=== PATIENT | female | born 1970 | race Caucasian/White ===

== ENCOUNTER → 2017-07-04 | Outpatient (CLI) | payer OTHER | LOC: CIMAGING 11:14 | DX: Z12.31 Encounter for screening mammogram for malignant neoplasm of breast (principal); Z80.3 Family history of malignant neoplasm of breast | CPT/HCPCS: G0202 ==

== ENCOUNTER → 2017-08-11 | Outpatient (CLI) | payer OTHER | LOC: FIMAGING 11:30 | PROVIDERS: ATTEND Obstetrics & Gynecology | DX: Z31.69 Encounter for other general counseling and advice on procreation (principal) ==

== ENCOUNTER → 2018-03-26 | Outpatient (CLI) | payer OTHER | LOC: FIMAGING 13:27 | PROVIDERS: ATTEND Obstetrics & Gynecology | DX: O44.02 Complete placenta previa NOS or without hemorrhage, second trimester (principal); O26.872 Cervical shortening, second trimester; O09.812 Supervision of pregnancy resulting from assisted reproductive technology, second trimester; O09.522 Supervision of elderly multigravida, second trimester; O34.219 Maternal care for unspecified type scar from previous cesarean delivery; Z3A.19 19 weeks gestation of pregnancy ==

== ENCOUNTER → 2018-04-09 | Outpatient (CLI) | payer OTHER | LOC: FIMAGING 10:13 | PROVIDERS: ATTEND Obstetrics & Gynecology | DX: O09.522 Supervision of elderly multigravida, second trimester (principal); O09.812 Supervision of pregnancy resulting from assisted reproductive technology, second trimester; Z3A.21 21 weeks gestation of pregnancy ==

== ENCOUNTER → 2018-04-16 | Outpatient (CLI) | payer OTHER | LOC: FIMAGING 13:41 | PROVIDERS: ATTEND Obstetrics & Gynecology | DX: O26.872 Cervical shortening, second trimester (principal); O44.22 Partial placenta previa NOS or without hemorrhage, second trimester; O34.219 Maternal care for unspecified type scar from previous cesarean delivery; O09.522 Supervision of elderly multigravida, second trimester; O09.812 Supervision of pregnancy resulting from assisted reproductive technology, second trimester; Z3A.22 22 weeks gestation of pregnancy ==

== ENCOUNTER → 2018-04-21 | Outpatient (CLI) | payer OTHER | LOC: FLAB 14:38 | PROVIDERS: ATTEND Obstetrics & Gynecology | DX: O26.872 Cervical shortening, second trimester (principal); O44.22 Partial placenta previa NOS or without hemorrhage, second trimester; O09.812 Supervision of pregnancy resulting from assisted reproductive technology, second trimester; O09.522 Supervision of elderly multigravida, second trimester; O34.219 Maternal care for unspecified type scar from previous cesarean delivery; Z3A.23 23 weeks gestation of pregnancy ==

== ENCOUNTER → 2018-05-05 | Outpatient (CLI) | payer OTHER | LOC: FIMAGING 13:15 | PROVIDERS: ATTEND Obstetrics & Gynecology | DX: O09.522 Supervision of elderly multigravida, second trimester (principal); O09.812 Supervision of pregnancy resulting from assisted reproductive technology, second trimester; Z3A.25 25 weeks gestation of pregnancy ==

== ENCOUNTER → 2018-06-08 | Outpatient (CLI) | payer OTHER | LOC: FIMAGING 15:05 | PROVIDERS: ATTEND Obstetrics & Gynecology | DX: O44.43 Low lying placenta NOS or without hemorrhage, third trimester (principal); O09.813 Supervision of pregnancy resulting from assisted reproductive technology, third trimester; O09.523 Supervision of elderly multigravida, third trimester; O34.219 Maternal care for unspecified type scar from previous cesarean delivery; O26.873 Cervical shortening, third trimester; Z3A.30 30 weeks gestation of pregnancy ==

== ENCOUNTER 2018-08-05 09:34 | Observation (INO) | payer OTHER ==
[2018-08-05 10:35] LABS: PLATELET COUNT 190 10^3/uL (150-400)
== END 2018-08-05 11:30 | disposition home or self-care (01) ==
LOC: FLD 09:34
PROVIDERS: ADMIT Obstetrics & Gynecology; ATTEND Obstetrics & Gynecology
DX: O46.90 Antepartum hemorrhage, unspecified, unspecified trimester (principal)
CPT/HCPCS: 59025; G0378

== ENCOUNTER 2018-08-07 01:10 | Inpatient (IN) | payer OTHER ==
[2018-08-07] MEDS ORDERED: CITRIC ACID/SODIUM CITRATE 30 ML UDCUP PO ONE (01:21)
[2018-08-07] MEDS ORDERED: LR 500 ML IV ONE (01:21)
[2018-08-07] MEDS ORDERED: LR 1,000 ML IV SCH (01:30)
--- NOTE | 2018-08-07 01:35 | PDHPUP ---
History & Physical Update H&P update statement: This history and physical update is based on an assessment of the patient which was completed after admission or registration (within 24 hours), but prior to the surgery/procedure. H&P update: H&P reviewed & patient examined, changes noted (Pt presented with an episode of a large gush of blood + clots, will proceed with delivery now)
[2018-08-07] MEDS ORDERED: ceFAZolin 2 GM/DEXTROSE 100 ML IV ONE (01:38)
[2018-08-07 01:39] LABS: PLATELET COUNT 234 10^3/uL (150-400)
[2018-08-07] MEDS ORDERED: morphINE PF 5 MG/10 ML INJ ONE (01:43)
[2018-08-07] MEDS ORDERED: fentaNYL 100 MCG/2 ML INJ ONE (01:43)
[2018-08-07] MEDS ORDERED: PHENYLEPHRINE HCL 100 MCG/ML SYR ONE (01:43)
[2018-08-07] MEDS ORDERED: OXYTOCIN 100 UNITS/10 ML VIAL ONE (01:48)
[2018-08-07] MEDS ORDERED: BUPIVACAINE/DEXTROSE 7.5MG/ML 2 ML SPINAL AMP SP ONE (01:48)
--- NOTE | 2018-08-07 01:54 | PREANESOB ---
Obstetric Pre-Anesthesia Info - General Info Proposed Procedure: C/S : 2 Para: 1 MAYCOL: 08/16/18 Gestational Age: 38 week(s) and 5 day(s) - Info Status: Full Term, Issa Monitors: External FHR Pattern: Reassuring - Labor Status PIH: No Section History: Repeat Indications for Current Section: Other (Specify) (Painless vaginal bleeding) Labor Epidural: No Anesthesia Allergies/Adverse Reactions: Allergy/AdvReac Type Severity Reaction Status Date / Time No Known Allergies Allergy Unverified 10/24/15 12:04 Home Medications: Medication Instructions Recorded Calcium 500 + Vit D 200 Tablet 4 tab PO DAILY 10/25/15 1 tab PO DAILY 10/25/15 Hydrocodone/APAP 5/325 [[place] 1 - 2 tab PO Q4 PRN #40 tab 10/28/15 5/325 (*)] Ibuprofen [Motrin (*)] 600 mg PO Q6 PRN #60 tab 10/28/15 Visit Medications: Generic Name Dose Route Start Last Admin Trade Name Freq PRN Reason Stop Dose Admin Lactated Ringer's 1,000 mls @ 125 mls/hr 08/07/18 01:30 Lr IV 08/08/18 01:29 CONT JUANITA Cefazolin Sodium/Dextrose 100 mls @ 200 mls/hr 08/07/18 01:38 Ancef 2 Gm IV 08/07/18 02:07 ONCALL ONE Protocol Discontinued Medications Generic Name Dose Route Start Last Admin Trade Name Freq PRN Reason Stop Dose Admin Bupivacaine HCl/Dextrose Confirm 08/07/18 01:48 Marcaine Spinal Administered 08/07/18 01:49 Dose 2 ml SP .STK-MED ONE Citric Acid/Sodium Citrate 30 ml 08/07/18 01:21 08/07/18 01:42 Bicitra PO 08/07/18 01:22 30 ml ONCALL ONE Administration Fentanyl Confirm 08/07/18 01:43 Sublimaze Administered 08/07/18 01:44 Dose 100 mcg .ROUTE .STK-MED ONE Lactated Ringer's 500 mls @ 0 mls/hr 08/07/18 01:21 Lr IV 08/07/18 01:22 ONCE ONE As Directed Morphine Sulfate Confirm 08/07/18 01:43 Morphine Pf 5 Mg/10 Ml Administered 09/14/18 01:44 Dose 5 mg .ROUTE .STK-MED ONE Oxytocin Confirm 08/07/18 01:48 Pitocin Administered 08/07/18 01:49 Dose 100 units .ROUTE .STK-MED ONE Phenylephrine HCl Confirm 08/07/18 01:43 Neosynephrine Administered 08/07/18 01:44 Dose 1,000 mcg .ROUTE .STK-MED ONE - Anesthesia History Anesthesia & Operative History: No Prior Problems (Prior C/S 2.5 yrs ago under epidural anesthesia) - Vital Signs Height/Weight (Nursing): Height 162.56 cm Weight 75.296 kg - Focused Exam Neck exam: FROM Mallampati Score: Class 2 Mouth exam: normal dental/mouth exam Pulmonary: no respiratory distress, no rales or rhonchi, clear to auscultation Cardiovascular: regular rate and rhythym, no murmur, rub, or gallop Labs: 08/07/18 01:20 - Plan Consent Signed and on Chart: Yes
[2018-08-07] MEDS ORDERED: HYDROCODONE/APAP 5/325 TAB PO PRN (02:31)
[2018-08-07] MEDS ORDERED: MEPERIDINE 25 MG/0.5 ML AMP IVP PRN (02:31)
[2018-08-07] MEDS ORDERED: PHENYLEPHRINE HCL 100 MCG/ML SYR IVP PRN (02:31)
[2018-08-07] MEDS ORDERED: fentaNYL 100 MCG/2 ML INJ IVP PRN (02:31)
[2018-08-07] MEDS ORDERED: ONDANSETRON 4 MG/2 ML VIAL IVP PRN (02:31)
[2018-08-07] MEDS ORDERED: NALOXONE HCL 0.4 MG/ML INJ IVP PRN (02:31)
[2018-08-07] MEDS ORDERED: PHENYLEPHRINE 10 MG/ML SDV ONE (02:58)
[2018-08-07] MEDS ORDERED: SILVER NITRATE APPLICATOR 1 APPL TP ONE (03:17)
--- NOTE | 2018-08-07 03:31 | OBDEL ---
Info Type: Repeat Presentation at Delivery: Vertex L&D Analgesia/Anesthesia Type: Spinal GBS+: No Intrapartum Medications: Discontinued Medications Generic Name Dose Route Start Last Admin Trade Name Deborah PRN Reason Stop Dose Admin Citric Acid/Sodium Citrate 30 ml 08/07/18 01:21 08/07/18 01:42 Bicitra PO 08/07/18 01:22 30 ml ONCALL ONE Administration Cefazolin Sodium/Dextrose 100 mls @ 200 mls/hr 08/07/18 01:38 08/07/18 01:53 Ancef 2 Gm IV 08/07/18 02:07 100 mls ONCALL ONE Administration Protocol - Infant Care Provider Virtual Office Assistant/[facility]: Anum Rodriguez Indications for Delivery: Elective (repeat, presented with vaginal bleeding @ 38 weeks) Vaginal Delivery - Labor and Delivery Cord Gases: Cord Gases Cord Blood PCO2 55.4 mmHg (37-60) 08/07/18 02:12 Cord Base Excess -5.0 mEq/L (-13.6--3.2) 08/07/18 02:12 Cord ABG pH 7.24 (7.10-7.37) 08/07/18 02:12 Cord VBG pH 7.31 (7.20-7.42) 08/07/18 02:12 Operative Report - Delivery Pre-op Diagnoses: IUP @ 38 4/7 weeks, h/o c section desires repeat, presented with heavy vaginal bleeding Post-op Diagnoses: same History of Prior Section: Yes Number of Prior Sections: 1 Nulliparous Prior to Delivery: No Indications for Prior Section: Arrest of Dilation Indications for Current Section: Elective/Repeat, Other (Specify) ( Painless vaginal bleeding) Procedure: Unscheduled Surgeon: Yolie Aguilar Third Officer: Altagracia Sierra Anesthesiologist: Gustavo Andres Complications: Other (Specify) (presented with heavy vaginal bleeding) Findings: no obvious source of bleeding Cord Gases: Cord Gases Cord Blood PCO2 55.4 mmHg (37-60) 08/07/18 02:12 Cord Base Excess -5.0 mEq/L (-13.6--3.2) 08/07/18 02:12 Cord ABG pH 7.24 (7.10-7.37) 08/07/18 02:12 Cord VBG pH 7.31 (7.20-7.42) 08/07/18 02:12 [place] Data MAYCOL: 08/16/18 Gestational Age: 38 week(s) and 5 day(s) Issa Delivery Date: 08/07/18 Delivery Time: 02:35 Sex of Infant: Male [place] Weight (gm): 3124 g Score (1 Min): 8 Score (5 Min): 8 ICD10 Worksheet Patient Problems: Problems Problem Status Onset Delivery by section of full-term infant Acute Vaginal bleeding Acute Oligohydramnios antepartum Acute - ICD10 Problem Qualifiers (1) Delivery by section of full-term infant (2) Vaginal bleeding
--- NOTE | 2018-08-07 03:34 | POSTANESTH ---
Post Anesthetic Evaluation Cardiovascular Status: Tx Over/Under Hydration (A little hypotensive (92/59); giving IV fluid. It will improve as spinal anesthetic recedes.) Respiratory Status: Normal, Stable, Similar to Pre-op Cond. Level of Consciousness/Mental Status: Can Participate in Eval, Alert and Oriented Pain Control: Adequate, Prn Tx Ordered Nausea/Vomiting Control: Adequate, Prn Tx Ordered Complications Possibly Related to Anesthesia: None Noted
[2018-08-07] MEDS ORDERED: SIMETHICONE 80 MG TAB CHEW PO PRN (03:37)
[2018-08-07] MEDS ORDERED: DOCUSATE SODIUM 100 MG CAP PO PRN (03:37)
[2018-08-07] MEDS ORDERED: PROMETHAZINE HCL 25 MG/ML INJ IVP PRN (03:37)
[2018-08-07] MEDS ORDERED: OXYTOCIN/RINGERS LACTATE 20 UNIT/1,000 ML BAG IV ONE (04:56)
[2018-08-07] MEDS ORDERED: MISOPROSTOL 200 MCG TAB ONE (04:58)
[2018-08-07] MEDS ORDERED: OXYTOCIN/RINGERS LACTATE 1,000 ML IV SCH (05:15)
[2018-08-07] MEDS ORDERED: MISOPROSTOL 200 MCG TAB PR ONE (05:15)
[2018-08-07] MEDS: KETOROLAC 30 MG/1 ML SDV IVP SCH ×4 (05:54→23:29)
--- NOTE | 2018-08-07 06:11 | SOAPPROG ---
SOAP Progress Note Assessment/Plan: Pt having light flow/trickle of bleeding. RN called for evaluation. sterile vaginal exam performed and clots noted at cervical os, which were manually removed. uterus firm and bleeding appropriate. will continue to monitor. Dr Aguilar aware/agrees with plan of care Objective: Vital Signs Temp Pulse Resp BP Pulse Ox 36.5 C 15 113/81 H 100 08/07/18 03:23 08/07/18 04:38 08/07/18 04:38 08/07/18 04:38 Laboratory Results 08/07/18 01:20 08/06/18 08/07/18 08/08/18 05:59 05:59 05:59 Output Total 250 Balance -250 ICD10 Worksheet Patient Problems: Problems Problem Status Onset Delivery by section of full-term infant Acute Vaginal bleeding Acute Oligohydramnios antepartum Acute
--- NOTE | 2018-08-07 07:37 | GOP ---
DATE OF OPERATION: 08/07/2018 SURGEON: Yolie Aguilar MD FOIL STAMP OPERATOR: Altagracia Sierra CNM. ANESTHESIA: Spinal anesthesia. ANESTHESIOLOGIST: Deion Andres MD. PREOPERATIVE DIAGNOSIS: 1. Intrauterine at 38-4/7 weeks' gestation with history of section, desires repea t. 2. Presents with heavy vaginal bleeding. POSTOPERATIVE DIAGNOSIS: 1. Intrauterine at 38-4/7 weeks' gestation with history of section, desires repea t. 2. Presents with heavy vaginal bleeding. PROCEDURE PERFORMED: Repeat lower transverse section. FINDINGS: Viable female, Apgars of 8 and 8, weight of 3124 g with a cord pH arterial 7.24, venous 7. 31, pO2 55.4, base excess was -5.0. ESTIMATED BLOOD LOSS: 1000 mL. INDICATIONS: Patient is a 47-year-old, 2, para 1-0-0-1 who underwent an IVF cycle with this . embryo transfer on November 28, 2017, and an EDC of 08/16/2018 which was also confirm ed by a first-trimester ultrasound. She has had good care at [facility] since reg istration at 11 weeks' gestation. Her risk factors include advanced maternal age greater th an 40 years. She had a normal level 2 ultrasounds and growth ultrasounds, and normal anti-PT testing in this . This is an IVF of her frozen eggs from age 38 and donor sperm. She rodriguez d a normal echo as well as anatomy ultrasounds and she has a history of and desires r epeat. 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 Early in she rodriguez d a history of shortened cervix and was on vaginal progesterone and she had a history of a posterior placenta previa which was resolved. Early in the morning on the , the patient presented with a g ush of bleeding that woke her from sleep. She went into her bathroom and had heavy flow of bleeding with clots requiring her to get in the shower to clean up. She denied pain, cramping, contractions, and had felt good movement. I recommended that she come to the hospital immediately. She cont inued to have episodes of bleeding with passage of clots. The baby's heart tones were in the 130s, m oderate variability, category 1, but not reactive. She had mild uterine irritability. No active con tractions, but she continued to have bleeding and the decision was made to proceed with deli very at 38-5/7 weeks. The patient had previously been consented for the procedure. She understood t he risks and benefits. The risks including bleeding, infection, infection, damage to internal organs , uterus, tubes, ovaries, bowel, bladder, nerves, blood vessels, ureters, risk of injury, risk of hemorrhage requiring blood transfusion, and hysterectomy. She understood these risks and benefits and agreed to proceed. DESCRIPTION OF PROCEDURE: Patient was taken to the operating room where she was placed under spinal anesthesia without difficulty. She was prepped and draped in the dorsal supine position with a leftw camelia tilt, and a Cabello catheter was placed in her bladder. After adequate anesthesia was assured and a WHO time-out was performed, a transverse skin incision was made in the prior scar. The i ncision was extended down to the fascia with a knife and the Bovie. The fascial incision was extende d laterally with Hutton scissors. Superior aspect of the fascial incision was grasped with Lynda clam ps, elevated, and the rectus muscles were dissected off sharply. Inferior aspect of the fascial inci isaias was grasped with the Lynda clamps, elevated, and the rectus muscles were dissected off sharply. Rectus muscles were in the midline and the bladder blade was inserted. The vesicouterine peritoneum was grasped with the pickups and entered sharply with Metzenbaum scissors. The incision was extended laterally, and bladder flap was created digitally. Bladder blade was reinserted. The u terus was incised with a knife. There was clear amniotic fluid upon entry of the uterine cavity. Th e incision was extended laterally with banded scissors. The was delivered atraumatically with out difficulty. We waited 1 minute for delayed cord clamping. The cord was then clamped and cut. T he was handed off to the waiting nurse practitioners. Cord blood gas as well as cord bloods were sent. The placenta was adherent to the posterior wall of the uterus. It was removed ma nually without difficulty. The uterus was exteriorized, cleared of all clots and debris. The uterin e incision was repaired with 0 Vicryl in a running locked fashion. A second imbricating layer of sut ure was performed also with 0 Vicryl and good hemostasis was assured. The uterus was returned to the abdomen. Gutters were cleared of all clots and debris. Reinspection of the uterine incision again assured hemostasis. The rectus muscles were approximated with 2-0 Vicryl in inverted mattress fashio n. The fascia was closed with #1 Vicryl in a running fashion. Subcutaneous layer was closed with 2- 0 Vicryl and skin was closed with 4-0 Vicryl. The patient tolerated the procedure well. Sponge, lap , needle, and instrument counts were correct x2. Patient went to the recovery room in good condition . IV FLUIDS: 1800 mL URINE OUTPUT: 200 mL. ADDENDUM: The patient also desired 2 benign appearing nevi to be removed on her anterior chest. The se were prepped with chlorhexidine, removed directly with scalpel and cauterized with silver nitrate and hemostasis was obtained. /[id number]/MODL
[2018-08-07] MEDS: ACETAMINOPHEN 325 MG TAB PO SCH ×3 (07:45→16:57)
--- NOTE | 2018-08-07 18:34 | OBPP ---
Progress Note Assessment/Plan: Assessment: 47 yo POD#0 s/p R-C/S at 0235 this morning at 38 wk, after having significant vaginal bleeding. Had some additional bleeding in the PACU, but that has resolved. Plan: Routine pp cares. Out of bed this evening and removal of Cabello catheter by 24 hours after delivery. Deirdre Lucas MD, F[facility]OG [facility] 08/07/18 19:12 Subjective/ Course: Pt doing well. Anusha reg diet - no nausea. Unsure if + flatus yet. Has dangled at side of bed without dizziness. going well. 08/07/18 19:16 Objective: 08/07/18 01:20 Patient ABO/Rh O POSITIVE 08/07/18 01:20 Temp Pulse Resp BP Pulse Ox 37.1 C 90 15 131/86 H 98 08/07/18 18:00 08/07/18 18:00 08/07/18 18:00 08/07/18 18:00 08/07/18 18:00 gen - pleasant female, NAD, resting sitting up in bed comfortably CV - RRR chest - CTAB abd - soft, fundus firm u-1, dressing - C/D/I except for a 2 cm sanguinous spot on her dressing ext - SCDs in place, calves NT, trace edema Uterine Position/Fundal Height: Umbilicus -1 Uterine Tone: Firm
[2018-08-08] MEDS: ACETAMINOPHEN 325 MG TAB PO SCH ×5 (00:35→23:55)
[2018-08-08] MEDS: IBUPROFEN 600 MG TAB PO SCH ×4 (06:49→23:57)
[2018-08-08] MEDS: oxyCODONE IR 5 MG TAB PO PRN ×4 (07:45→22:58)
--- NOTE | 2018-08-08 12:54 | OBPP ---
Progress Note Assessment/Plan: Assessment: 47 yo now POD1 s/p R-C/S at 0235 Friday morning at 38 wk, after having significant vaginal bleeding. Had some additional bleeding in the PACU, but that has resolved. Total EBL from delivery 1000cc (and PACU 300cc) = 1300cc. - Hct 25, asymptomatic, no plans for transfusion, will monitor. - Routine cares, likely home Friday. - Pain controlled. DAMIEN 08/08/18 12:55 Subjective/ Course: Pt doing well. Anusha reg diet - no nausea. Unsure if + flatus yet. Has dangled at side of bed without dizziness. going well. 08/07/18 19:16 08/08/18 12:52 Sabiha is doing really well - no acute issues, BF going well. Thinks she'd probably like to leave Friday. Pain controlled. No s/sx of anemia. Objective: 08/08/18 03:15 Patient ABO/Rh O POSITIVE 08/07/18 01:20 Temp Pulse Resp BP Pulse Ox 37.3 C 91 15 121/82 H 95 08/08/18 08:00 08/08/18 08:00 08/08/18 08:00 08/08/18 08:00 08/08/18 08:00 Uterine Position/Fundal Height: At Umbilicus Uterine Tone: Firm Physical Exam - Physical Exam Abdomen: incision (CDI steri strips, some dried blood)
[2018-08-09] MEDS: IBUPROFEN 600 MG TAB PO SCH ×4 (01:34→21:51)
[2018-08-09] MEDS: oxyCODONE IR 5 MG TAB PO PRN (03:20)
[2018-08-09] MEDS: ACETAMINOPHEN 325 MG TAB PO SCH ×4 (05:56→21:51)
--- NOTE | 2018-08-09 09:14 | OBPP ---
Progress Note Assessment/Plan: Assessment: 47 yo POD#0 s/p R-C/S at 0235 this morning at 38 wk, after having significant vaginal bleeding. Had some additional bleeding in the PACU, but that has resolved. Plan: Routine pp cares. Out of bed this evening and removal of Cabello catheter by 24 hours after delivery. Deirdre Lucas MD, [facility] 08/07/18 19:12 A/p: 47 yo POD#2 s/P R-C/S after significant bleeding. Anemic but asymptomatic. Continue routine postop cares and anticipate dc home tomorrow. Deirdre Lucas MD, [facility] 08/09/18 10:43 Subjective/ Course: Pt doing well. Anusha reg diet - no nausea. Unsure if + flatus yet. Has dangled at side of bed without dizziness. going well. 08/07/18 19:16 08/08/18 12:52 Sabiha is doing really well - no acute issues, BF going well. Thinks she'd probably like to leave Friday. Pain controlled. No s/sx of anemia. 08/09/18 10:46 Pt is doing well. Ambulating and voiding without difficulty. BF going well. Is not lightheaded or dizzy with ambulation. Moderate lochia. Objective: 08/08/18 03:15 Patient ABO/Rh O POSITIVE 08/07/18 01:20 Temp Pulse Resp BP Pulse Ox 36.9 C 79 16 138/82 H 96 08/09/18 04:00 08/09/18 04:00 08/09/18 04:00 08/09/18 04:00 08/09/18 04:00 gen - pleasant, NAD CV - RRR chest - CTAB abd - soft, NT, +NABS, fundus firm at u-2, incision - C/D/I with steristrips in place, with small amount of dry sanguionous drainage ext - BLE trace edema, calves NT Uterine Position/Fundal Height: Umbilicus -2 Uterine Tone: Firm
[2018-08-09] MEDS: FERROUS SULFATE 140 MG TAB.ER PO SCH (12:22)
[2018-08-10] MEDS: IBUPROFEN 600 MG TAB PO SCH ×2 (04:01→11:10)
[2018-08-10] MEDS: ACETAMINOPHEN 325 MG TAB PO SCH ×2 (04:01→11:09)
[2018-08-10 08:00] VITALS: BP 135/89
--- NOTE | 2018-08-10 09:59 | OBPP ---
Progress Note Assessment/Plan: Assessment: 47 yo now POD3 s/p R-C/S at 0235 Friday morning at 38 wk, after having significant vaginal bleeding. Had some additional bleeding in the PACU, but that has resolved. Total EBL from delivery 1000cc (and PACU 300cc) = 1300cc. - Hct 25, asymptomatic, no plans for transfusion, will monitor. - Dc on Daily slow FE. - Routine cares, home today. - Pain controlled - Flu shot before dc JM Subjective/ Course: Overall feeling quite well. Did have a frustrating night with very restless legs. Does think she'd like to go home today. Incision bled a little more last night. Objective: 08/08/18 03:15 Patient ABO/Rh O POSITIVE 08/07/18 01:20 Temp Pulse Resp BP Pulse Ox 37.2 C 77 14 135/89 H 96 08/10/18 07:59 08/10/18 07:59 08/10/18 07:59 08/10/18 07:59 08/10/18 07:59 Uterine Position/Fundal Height: At Umbilicus Uterine Tone: Firm Physical Exam - Physical Exam Abdomen: incision (Clean but with dried blood on steri's R side incision, otherwise looks good)
--- NOTE | 2018-08-10 10:35 | OBGCSDC ---
General Delivery Information - General Info : 2 Para: 2 Abortions: 0 Type: Repeat L&D Analgesia/Anesthesia Type: Spinal Admission Date: 08/07/18 Labs: Patient ABO/Rh O POSITIVE 08/07/18 01:20 Hct 25.2 % (38.0-47.0) L 08/08/18 03:15 - Hospital Course : Pt doing well. Anusha reg diet - no nausea. Unsure if + flatus yet. Has dangled at side of bed without dizziness. going well. 08/07/18 19:16 08/08/18 12:52 Sabiha is doing really well - no acute issues, BF going well. Thinks she'd probably like to leave Friday. Pain controlled. No s/sx of anemia. 08/09/18 10:46 Pt is doing well. Ambulating and voiding without difficulty. BF going well. Is not lightheaded or dizzy with ambulation. Moderate lochia. - Delivery Providers Surgeon: Yolie Aguilar Travel Cota: Altagracia Sierra Anesthesiologist: Gustavo Andres - Delivery Number of Prior Sections: 1 Indications for Current Section: Elective/Repeat, Other (Specify) ( Painless vaginal bleeding) Surgical Procedures: Unscheduled Intra-op Complications: Other (Specify) (presented with heavy vaginal bleeding) [place] Data MAYCOL: 08/16/18 Gestational Age: 39 week(s) and 1 day(s) Issa Delivery Date: 08/07/18 Delivery Time: 02:35 Sex of : Male Weight (gm): 3124 g Score (1 Min): 8 Score (5 Min): 8 Discharge Information - Discharge Information Prescriptions: oxyCODONE IR [Oxycodone Ir (*)] 5 - 10 mg PO Q4HRS PRN #20 tab PRN Reason: Pain, Severe Ferrous Sulfate [Slow Fe 140 MG (*)] 140 mg PO DAILY 30 Days tab.er Condition: Good Instruction/Follow Up: See Instruction Sheet, Two Weeks, Four Weeks, Six Weeks
[2018-08-10] MEDS: FERROUS SULFATE 140 MG TAB.ER PO SCH (11:09)
== END 2018-08-10 12:30 | disposition home or self-care (01) | DRG 765 ==
LOC: FLD 01:10 → FOB 10:00
PROVIDERS: ADMIT Obstetrics & Gynecology; ATTEND Obstetrics & Gynecology
PROC: 10D00Z1 Extraction of Products of Conception, Low, Open Approach (ICD-10-PCS; principal; 2018-08-07)
PROC: 0HB5XZX Excision of Chest Skin, External Approach, Diagnostic (ICD-10-PCS; principal; 2018-08-07)
DX: O34.219 Maternal care for unspecified type scar from previous cesarean delivery (principal); O46.93 Antepartum hemorrhage, unspecified, third trimester; O98.313 Other infections with a predominantly sexual mode of transmission complicating pregnancy, third trimester; O99.013 Anemia complicating pregnancy, third trimester; O26.893 Other specified pregnancy related conditions, third trimester; D23.5 Other benign neoplasm of skin of trunk; Z23 Encounter for immunization; Z3A.39 39 weeks gestation of pregnancy; Z37.0 Single live birth
CPT/HCPCS: G0008; J0690; J1885; J2274; J2370; J2590; J3010